=== PATIENT | male | born 1935 | race Caucasian/White ===

== ENCOUNTER 2017-11-28 11:05 | Emergency (ER) | payer OTHER ==
[~2017-11-28] VITALS: Ht 193 cm; Wt 104.3 kg
[~2017-11-28 11:05] MED LIST: ALBU90OI INH; AMLO5 PO; ASCO500 PO; ATEN50 PO; Acetaminophen325 M1 PO; Alphagan P5 ML BOTHEYES; CHOL10002; Cephalexin500 MG PO; LEVFLO500 PO; PRED10 PO; TERA5 PO; XARELTO15 MG PO; XARELTO20 MG PO
[2017-11-28 12:25] LABS: BASOPHILS ABSOLUTE AUTO 0.06 K/mm3 (0.00-0.23); BASOPHILS PERCENT AUTO 1 % (0-2); EOSINOPHILS PERCENT AUTO 3 % (0-6); Hemoglobin 13.8 g/dL (13.5-17.5); IMMATURE GRAN ABSOLUTE AUTO 0.02 K/mm3 (0.00-0.10); IMMATURE GRAN PERCENT AUTO 0 % (0-1); LYMPHOCYTES ABSOLUTE AUTO 1.07 K/mm3 (0.84-5.20); LYMPHOCYTES PERCENT AUTO 16 % (21-46); MONOCYTES ABSOLUTE AUTO 0.78 K/mm3 (0.16-1.47); MONOCYTES PERCENT AUTO 12 % (4-13); Mean Corpuscular HGB Conc 33.7 g/dL (31.5-36.5); Mean Corpuscular Volume 92 fL (80-100); Mean Platelet Volume 11.2 fL (9.1-12.4); NEUTROPHILS ABSOLUTE AUTO 4.62 K/mm3 (1.96-9.15); NEUTROPHILS PERCENT AUTO 68 % (41-73); Platelet Count 187 K/mm3 (150-400); RDW Coefficient Variation 12.6 % (11.7-14.2); RDW Standard Deviation 42.7 fL (35.1-46.3); Red Blood Cell Count 4.45 M/mm3 (4.30-5.90); White Blood Cell Count 6.75 K/mm3 (4.00-11.30)
[2017-11-28 12:36] LABS: Anion Gap 7 mmol/L (6-16); Blood Urea Nitrogen 14 mg/dL (8-24); Bun/Creatinine Ratio 18.1 (12.0-20.0); CO2, Blood 26 mmol/L (21-32); Calcium, Blood 8.8 mg/dL (8.5-10.1); Chloride, Blood 108 mmol/L (98-108); Creatinine, Blood 0.77 mg/dL (0.60-1.20); Glomerular Filtration Rate >60 (60-); Glucose, Blood 82 mg/dL (70-99); Potassium, Blood 3.8 mmol/L (3.5-5.5); Sodium, Blood 141 mmol/L (136-145)
[2017-11-28 12:52] LABS: International Normalized Ratio 1.16; Prothrombin Time Results 12.1 Sec (9.7-11.5)
[2017-11-29] MEDS ORDERED: CALCA400CH PO (22:21)
[2017-11-29] MEDS ORDERED: MONT10T PO (22:21)
[2017-11-29] MEDS ORDERED: DORZOPSO (22:21)
[2017-11-29] MEDS ORDERED: TERA5 PO (22:22)
[2017-11-29] MEDS ORDERED: Garlic Oil1000 MG PO (23:22)
[2017-11-29] MEDS ORDERED: Coq-10100 MG PO (23:24)
[2017-11-29] MEDS ORDERED: OXYB5 PO (23:30)
== END 2017-11-28 13:30 | disposition home or self-care (01) ==
LOC: ER 11:05
PROVIDERS: Emergency Medicine
DX: I26.99 Other pulmonary embolism without acute cor pulmonale (principal); Z79.899 Other long term (current) drug therapy; Z79.2 Long term (current) use of antibiotics; Z79.52 Long term (current) use of systemic steroids; I10 Essential (primary) hypertension; J44.9 Chronic obstructive pulmonary disease, unspecified; Z87.891 Personal history of nicotine dependence
CPT/HCPCS: 36415; 80048; 85025; 85610; 85730; 93005; 93010; 96372; 99284; J1650

== ENCOUNTER 2017-11-29 21:42 | Observation (INO) | payer OTHER ==
[~2017-11-29] VITALS: Ht 177.8 cm; Wt 95.2 kg
[2017-11-29] MEDS ORDERED: DORZOPSO (22:21)
[2017-11-29] MEDS ORDERED: MONT10T PO (22:21)
[2017-11-29] MEDS ORDERED: CALCA400CH PO (22:21)
[2017-11-29] MEDS ORDERED: TERA5 PO (22:22)
[2017-11-29] MEDS ORDERED: Garlic Oil1000 MG PO (23:22)
[2017-11-29] MEDS ORDERED: Coq-10100 MG PO (23:24)
[2017-11-29] MEDS ORDERED: OXYB5 PO (23:30)
[2017-11-30 07:13] LABS: BASOPHILS ABSOLUTE AUTO 0.06 K/mm3 (0.00-0.23); BASOPHILS PERCENT AUTO 1 % (0-2); EOSINOPHILS ABSOLUTE AUTO 0.18 K/mm3 (0.00-0.68); EOSINOPHILS PERCENT AUTO 4 % (0-6); Hematocrit 36.9 % (37.0-53.0); Hemoglobin 12.1 g/dL (13.5-17.5); IMMATURE GRAN ABSOLUTE AUTO 0.01 K/mm3 (0.00-0.10); IMMATURE GRAN PERCENT AUTO 0 % (0-1); LYMPHOCYTES ABSOLUTE AUTO 0.76 K/mm3 (0.84-5.20); LYMPHOCYTES PERCENT AUTO 16 % (21-46); MONOCYTES ABSOLUTE AUTO 0.66 K/mm3 (0.16-1.47); MONOCYTES PERCENT AUTO 14 % (4-13); Mean Corpuscular HGB 30.3 pg (26.0-34.0); Mean Corpuscular HGB Conc 32.8 g/dL (31.5-36.5); Mean Corpuscular Volume 92 fL (80-100); Mean Platelet Volume 10.7 fL (9.1-12.4); NEUTROPHILS ABSOLUTE AUTO 3.06 K/mm3 (1.96-9.15); NEUTROPHILS PERCENT AUTO 65 % (41-73); Platelet Count 181 K/mm3 (150-400); RDW Coefficient Variation 12.6 % (11.7-14.2); RDW Standard Deviation 42.9 fL (35.1-46.3); White Blood Cell Count 4.73 K/mm3 (4.00-11.30)
[2017-11-30 07:46] LABS: Albumin, Blood 2.6 g/dL (3.4-5.0); Anion Gap 7 mmol/L (6-16); Blood Urea Nitrogen 17 mg/dL (8-24); Bun/Creatinine Ratio 20.6 (12.0-20.0); CO2, Blood 29 mmol/L (21-32); Calcium, Blood 8.2 mg/dL (8.5-10.1); Chloride, Blood 108 mmol/L (98-108); Creatinine, Blood 0.83 mg/dL (0.60-1.20); Glomerular Filtration Rate >60 (60-); Glucose, Blood 98 mg/dL (70-99); Phosphorus, Blood 3.8 mg/dL (2.5-4.9); Sodium, Blood 144 mmol/L (136-145)
[2017-11-30] MEDS ORDERED: ELIQUIS5 MG PO (13:31)
[2017-11-30] MEDS ORDERED: ALBU3IS INH (13:41)
[2017-11-30] MEDS ORDERED: ALBU2.5V5 NEB (13:42)
== END 2017-11-30 15:10 | disposition home or self-care (01) ==
LOC: ER 21:42 → MEDS 21:43 → ER 22:00 → MEDS 22:00 → ENPENDDIS 11-30 11:00 → MEDS 11-30 15:10
PROVIDERS: Family Medicine
DX: I26.92 Saddle embolus of pulmonary artery without acute cor pulmonale (principal); I10 Essential (primary) hypertension; J44.1 Chronic obstructive pulmonary disease with (acute) exacerbation; R00.1 Bradycardia, unspecified; G47.00 Insomnia, unspecified; H40.9 Unspecified glaucoma; G47.30 Sleep apnea, unspecified; D50.9 Iron deficiency anemia, unspecified; I25.10 Atherosclerotic heart disease of native coronary artery without angina pectoris; E78.5 Hyperlipidemia, unspecified; R32 Unspecified urinary incontinence; M79.0 Rheumatism, unspecified; N40.0 Benign prostatic hyperplasia without lower urinary tract symptoms; Z99.89 Dependence on other enabling machines and devices; Z86.718 Personal history of other venous thrombosis and embolism; Z86.711 Personal history of pulmonary embolism; Z79.01 Long term (current) use of anticoagulants; Z79.899 Other long term (current) drug therapy; Z87.891 Personal history of nicotine dependence; Z98.890 Other specified postprocedural states
CPT/HCPCS: 36415; 80069; 83880; 84484; 85025; 93005; 93010; 93306; 94640; 94760; 94762; 99285; G0378